=== PATIENT | male | born 1980 | race Caucasian/White ===

== ENCOUNTER 2017-05-29 18:57 | Emergency (ER) | payer SELFPAY ==
[~2017-05-29] VITALS: Ht 167.6 cm; Wt 80.0 kg
[2017-05-29 18:59] VITALS: BP 177/91; PULSE 110; RESP 15; TEMP 98.1; O2SAT 99
[2017-05-29] MEDS ORDERED: PRED20 PO (20:03)
[2017-05-29] MEDS ORDERED: VIST50CA PO (20:03)
[2017-05-29] MEDS ORDERED: TRIA0.022 TOPICAL (20:03)
--- NOTE | 2017-05-29 20:03 | PD ---
HPI Chief Complaint: Skin Problem Time Seen by Provider: 19:25 Travel History International Travel<30 days: No Contact w/Intl Traveler<30days: No Traveled to known affect area: No History of Present Illness HPI 36-year-old male presents to the emergency department for evaluation of a pruritic, dry flaky rash on his bilateral upper extremities. Noticed it starting about a month ago. It has progressively gotten worse. Denies any new exposures. No fever or chills. No recent illnesses. No known new medications. 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 He has no other symptoms to report. [facility] Past Medical History Medical History: Denies Significant Hx Social History Alcohol Use: No Tobacco Use: No Substance Use: No Allergies-Medications Reported Meds & Prescriptions Reported Meds & Active Scripts Active Vistaril (Hydroxyzine Pamoate) 50 Mg Cap 50 Mg PO QID PRN Prednisone 20 Mg Tab 20 Mg PO BID 5 Days Triamcinolone Topical 0.025 % Oint 1 Applic TOPICAL BID Review of Systems Except as stated in HPI: all other systems reviewed are Neg Physical Exam Narrative GENERAL: Well-nourished, well-developed nail patient in no acute distress SKIN: Focused skin assessment warm/dry. Plaque like scaly lesions that are moderately erythematous on the forearm. There also micropapules that are erythematous and blanchable moving up the bilateral extremities. No vesicle or pustule formation. These micropapules her also on the patient's back. HEAD: Normocephalic. EYES: No scleral icterus. No injection or drainage. NECK: Supple, trachea midline. No JVD or lymphadenopathy. CARDIOVASCULAR: Regular rate and rhythm without murmurs, gallops, or rubs. RESPIRATORY: Breath sounds equal bilaterally. No accessory muscle use. GASTROINTESTINAL: Abdomen soft, non-tender, nondistended. MUSCULOSKELETAL: No cyanosis, or edema. BACK: Nontender without obvious deformity. No CVA tenderness. Data Data Last Documented VS Vital Signs Date Time Temp Pulse Resp B/P (MAP) Pulse Ox O2 Delivery O2 Flow Rate FiO2 05/29/17 18:59 98.1 110 15 177/91 (119) 99 MDM Medical Decision Making Medical Screen Exam Complete: Yes Emergency Medical Condition: Yes Medical Record Reviewed: Yes Differential Diagnosis Eczema versus psoriasis versus contact dermatitis versus parasitic infection Narrative Course 36-year-old male presents to emergency department for evaluation of a dry flaky rash. Physical findings are consistent with an eczema versus psoriasis. Patient be treated with topical steroid. He is encouraged to seek dermatology evaluation. He agrees to return immediately with any acute worsening symptoms. Diagnosis Primary Impression: Eczema of upper extremity Referrals: Retirement Benefits Specialist Primary Care Physician Patient Instructions: Eczema (GEN), General Instructions Additional Instructions: Avoid scratching the lesions Follow-up with dermatology Return immediately with any acute worsening of symptoms Med/Other Pt SpecificInfo: Prescription(s) given Scripts Hydroxyzine Pamoate (Vistaril) 50 Mg Cap 50 MG PO QID Y for ITCHING, #20 CAP 0 Refills Prov: Nely Landis 05/29/17 Prednisone (Prednisone) 20 Mg Tab 20 MG PO BID for 5 Days, #10 TAB 0 Refills Prov: Nely Landis 05/29/17 Triamcinolone Topical (Triamcinolone Topical) 0.025 % Oint 1 APPLIC TOPICAL BID for Inflammation, #1 TUBE 0 Refills Prov: Nely Landis 05/29/17 Disposition: 01 DISCHARGE HOME Condition: Stable Nely Landis May 29, 2017 20:03
== END 2017-05-29 20:07 | disposition home or self-care (01) ==
LOC: NEPK 18:57
DX: L30.9 Dermatitis, unspecified (principal)
CPT/HCPCS: 99284

== ENCOUNTER 2017-08-08 11:05 | Emergency (ER) | payer SELFPAY ==
[~2017-08-08 11:05] MED LIST: PRED20 PO; TRIA0.022 TOPICAL; VIST50CA PO
[2017-08-08 11:06] VITALS: BP_SYST 125; BP_SYST 140; BP_DIAS 77; BP_DIAS 96; PULSE 107; PULSE 76; RESP 14; RESP 16; TEMP 98.4; O2SAT 99
[2017-08-08] MEDS ORDERED: AZIT250T3 PO (13:00)
[2017-08-08] MEDS ORDERED: PRED20 PO (13:00)
[2017-08-08] MEDS ORDERED: VENTAER INH (13:00)
--- NOTE | 2017-08-08 13:06 | PD ---
HPI Chief Complaint: Cold / Flu Symptoms Time Seen by Provider: 12:49 Travel History International Travel<30 days: No Contact w/Intl Traveler<30days: No Traveled to known affect area: No History of Present Illness HPI 36-year-old male presents to the emergency room for evaluation of mildly productive cough, congestion, sore throat, and malaise for the past 3 weeks. States it started off as a head cold with congestion but the cough has persisted. He was coughing up yellow phlegm. Reports intermittent fevers as high as 102 since onset. States fever should break on their own without medication. He has been taking [id number] NyQuil, DayQuil, and Mucinex without significant relief in symptoms. He went to work today and was sent home early because he was ill-appearing. patient smokes cigarettes. Denies history of asthma. [facility] Social History Alcohol Use: No Tobacco Use: No Substance Use: No Allergies-Medications Reported Meds & Prescriptions Reported Meds & Active Scripts Active Vistaril (Hydroxyzine Pamoate) 50 Mg Cap 50 Mg PO QID PRN Prednisone 20 Mg Tab 20 Mg PO BID 5 Days Triamcinolone Topical 0.025 % Oint 1 Applic TOPICAL BID Review of Systems Except as stated in HPI: all other systems reviewed are Neg Physical Exam Narrative GENERAL: Well-nourished, well-developed male in no acute distress. Afebrile. Ambulatory. SKIN: Focused skin assessment warm/dry. HEAD: Normocephalic. EYES: No scleral icterus. No injection or drainage. NECK: Supple, trachea midline. No JVD or lymphadenopathy. ENT: Mucosa pink and moist. No erythema or exudates. No uvular edema. No uvular , palatal, or tonsillar deviation. Airway patent. Nasal turbinates appear normal without nasal blood, purulent drainage or septal hematoma. EARS: Bilateral pinnae and external canals appear within normal limits. Bilateral tympanic membranes without erythema or perforation. Dullness to the right tympanic membrane. CARDIOVASCULAR: Regular rate and rhythm without murmurs, gallops, or rubs. RESPIRATORY: Breath sounds equal bilaterally. No accessory muscle use. No crackles, rales, or rhonchi. Expiratory wheezes bilaterally. Data Data Last Documented VS Vital Signs Date Time Temp Pulse Resp B/P (MAP) Pulse Ox O2 Delivery O2 Flow Rate FiO2 08/08/17 11:06 98.4 107 14 140/96 111 99 [facility] Medical Decision Making Medical Screen Exam Complete: Yes Emergency Medical Condition: Yes Medical Record Reviewed: Yes Differential Diagnosis Flu, pneumonia, bronchitis Narrative Course 36-year-old male presents to the emergency room for evaluation of mildly productive cough, congestion, sore throat, and flulike symptoms for the past 3 weeks but worsened a few days ago. Vital signs stable. Patient resting comfortably. Coughing occasionally. Physical exam reveals expiratory wheezes bilaterally. Likely viral bronchitis but given duration of symptoms and history of multiple, intermittent fevers as high as 102, patient will be treated empirically for community-acquired pneumonia with azithromycin, prednisone, and albuterol inhaler. Told to follow-up with a PCP or return for worsening symptoms. He understands and agrees to plan. Diagnosis Primary Impression: Bronchitis Referrals: Primary Care Physician Departure Forms: Tests/Procedures, Work Release Enter return to work date: Aug 11, 2017 Additional Instructions: Rest and drink plenty of fluids. Take azithromycin as directed, until gone. Prednisone as directed, until gone. Inhaler as directed, as needed for wheezing and shortness of breath. Follow up with a primary care physician. Return to emergency room for worsening symptoms, as discussed. Med/Other Pt SpecificInfo: Prescription(s) given Scripts Prednisone (Prednisone) 20 Mg Tab 40 MG PO DAILY, #10 TAB 0 Refills Take 40 mg (2 tablets) daily for 5 days Prov: Kacie Calderon MD 08/08/17 Albuterol 18 GM Inh (Ventolin Hfa 18 GM Inh) 90 Mcg/Act Aer 2 PUFF INH Q6H Y for SHORTNESS OF BREATH, #1 INHALER 0 Refills Prov: Kacie Calderon MD 08/08/17 Azithromycin (Azithromycin) 250 Mg Tab 250 MG PO DIRECTED for Infection, #6 TAB 0 Refills Take 2 tabs (500 mg) on day 1 then 1 tab daily x 4 days. Prov: Kacie Calderon MD 08/08/17 Disposition: 01 DISCHARGE HOME Condition: Stable Violet Stallings Aug 08, 2017 13:06
== END 2017-08-08 14:02 | disposition home or self-care (01) ==
LOC: NEPK 11:05
DX: J40 Bronchitis, not specified as acute or chronic (principal); F17.210 Nicotine dependence, cigarettes, uncomplicated
CPT/HCPCS: 99284

== ENCOUNTER 2017-09-18 19:31 | Emergency (ER) | payer SELFPAY ==
[~2017-09-18 19:31] MED LIST changes: +AZIT250T3 PO; -TRIA0.022 TOPICAL; +VENTAER INH
[2017-09-18 19:33] VITALS: BP 136/94; PULSE 114; RESP 16; TEMP 98.6; O2SAT 98
--- NOTE | 2017-09-18 21:17 | RADRPT ---
EXAM DATE/TIME: 09/18/2017 21:00 [facility] COMPARISON: No previous studies available for comparison. INDICATIONS : Chest pain and cough. MEDICAL HISTORY : None. SURGICAL HISTORY : None. ENCOUNTER: Initial ACUITY: 1 month PAIN SCORE: 10 LOCATION: Bilateral chest FINDINGS: A single view of the chest demonstrates the lungs to be symmetrically aerated without evidence of mas s, infiltrate or effusion. The cardiomediastinal contours are unremarkable. Osseous structures are intact. CONCLUSION: Normal examination. Espinoza Smith Jr., MD on September 18, 2017 at 21:14 Board Certified Radiologist. This report was verified electronically.
[2017-09-18 21:26] LABS: AUTOMATED NEUTROPHIL # 6.5 TH/MM3 (1.8-7.7); BASOPHIL # 0.1 TH/MM3 (0-0.2); BASOPHIL % 0.8 % (0.0-2.0); EOSINOPHIL # 0.2 TH/MM3 (0-0.4); EOSINOPHIL % 1.5 % (0.0-4.0); HEMATOCRIT 47.3 % (39.0-51.0); HEMOGLOBIN 16.3 GM/DL (13.0-17.0); LYMPH % 38.9 % (9.0-44.0); LYMPHOCYTE # 4.8 TH/MM3 (1.0-4.8); MEAN CELL VOLUME 86.9 FL (80.0-100.0); MEAN CORPUSCULAR HGB CONC 34.5 % (32.0-36.0); MEAN PLATELET VOLUME 8.5 FL (7.0-11.0); MONO % 6.3 % (0.0-8.0); MONOCYTE # 0.8 TH/MM3 (0-0.9); NEUT % 52.5 % (16.0-70.0); PLATELET COUNT 239 TH/MM3 (150-450); RED BLOOD COUNT 5.45 MIL/MM3 (4.50-5.90); RED CELL DISTRIBUTION WIDTH 13.3 % (11.6-17.2); WHITE BLOOD COUNT 12.3 TH/MM3 (4.0-11.0)
[2017-09-18 21:30] LABS: BILIRUBIN, URINE NEG (NEG); BLOOD, URINE NEG (NEG); GLUCOSE,URINE 1000 mg/dL (NEG); KETONE, URINE TRACE mg/dL (NEG); NITRITE,URINE NEG (NEG); PH, URINE 6.5 (5.0-8.5); SQUAMOUS EPITHELIAL CELL URINE <1 /hpf (0-5); URINE COLOR LIGHT-YELLOW (YELLW/STRAW); URINE LEUKOCYTE ESTERASE NEG (NEG)
[2017-09-18 21:47] LABS: ALT (GPT) 46 U/L (12-78)
[2017-09-18 21:50] LABS: ALKALINE PHOSPHATASE 98 U/L (45-117); TOTAL BILIRUBIN ADULT 0.3 MG/DL (0.2-1.0); TOTAL PROTEIN 7.2 GM/DL (6.4-8.2)
[2017-09-18 21:55] LABS: ALBUMIN 3.7 GM/DL (3.4-5.0); AST (GOT) 19 U/L (15-37); BLOOD UREA NITROGEN 15 MG/DL (7-18); CALCIUM 9.2 MG/DL (8.5-10.1); CHLORIDE 101 MEQ/L (98-107); CREATININE 1.23 MG/DL (0.60-1.30); GLOMERULAR FILTRATION RATE 67 ML/MIN (>89); GLUCOSE,RANDOM 372 MG/DL (74-106); SODIUM (NA) 136 MEQ/L (136-145)
--- NOTE | 2017-09-18 22:09 | RADRPT ---
EXAM DATE/TIME: 09/18/2017 21:47 [facility] COMPARISON: No previous studies available for comparison. INDICATIONS : Left flank pain. ORAL CONTRAST: No oral contrast ingested. RADIATION DOSE: 19.20 CTDIvol (mGy) MEDICAL HISTORY : Renal calculi. SURGICAL HISTORY : None. ENCOUNTER: Initial ACUITY: 2 days PAIN SCALE: 8/10 LOCATION: Left flank TECHNIQUE: Volumetric scanning of the abdomen and pelvis was performed. Using automated exposure control and ad justment of the mA and/or kV according to patient size, radiation dose was kept as low as reasonably achievable to obtain optimal diagnostic quality images. DICOM format image data is available electro nically for review and comparison. FINDINGS: LOWER LUNGS: The visualized lower lungs are clear. LIVER: Homogeneously low density without lesion. There is no dilation of the biliary tree. No calcified ga llstones. SPLEEN: Normal size without lesion. PANCREAS: Within normal limits. KIDNEYS: Normal in size and shape. There is no mass or hydronephrosis. Bilateral nonobstructing renal calculi . The largest measures 10 mm on the left. ADRENAL GLANDS: Within normal limits. VASCULAR: There is no aortic aneurysm. BOWEL/MESENTERY: The stomach, small bowel, and colon demonstrate no acute abnormality. There is no free intraperitone al air or fluid. ABDOMINAL WALL: Within normal limits. RETROPERITONEUM: There is no lymphadenopathy. BLADDER: No wall thickening or mass. REPRODUCTIVE: Within normal limits. INGUINAL: There is no lymphadenopathy or hernia. MUSCULOSKELETAL: Within normal limits for patient age. CONCLUSION: 1. Bilateral nonobstructing renal calculi. The largest is on the left measuring 1 cm. 2. Hepatic steatosis. Espinoza Smith Jr., MD on September 18, 2017 at 22:03 Board Certified Radiologist. This report was verified electronically.
[2017-09-18] MEDS ORDERED: methylPREDNISolone SOD SUCC 125 MG/2 ML VIAL IV PUSH ONE (22:15)
[2017-09-18] MEDS: RESP: ALBUTEROL 2.5 MG/IPRATROPIUM 0.5 MG NEB (SCH) INH (22:18)
[2017-09-18] MEDS ORDERED: VENTAER INH (22:34)
[2017-09-18] MEDS ORDERED: CIPR-9 PO ×2 (22:34→22:40)
[2017-09-18] MEDS ORDERED: METF500T PO (22:34)
--- NOTE | 2017-09-18 22:34 | PD ---
HPI Chief Complaint: Medical Clearance Time Seen by Provider: 22:00 Travel History International Travel<30 days: No Contact w/Intl Traveler<30days: No Traveled to known affect area: No History of Present Illness HPI 36 years old male complains of coughing congestion wheezing, left flank pain. Patient states that she started having persistent coughing congestion wheezing for the past month. Patient with seen in emergency room in the past with given prescription for Z-Lukasz an inhaler. Patient states that he could not afford the inhaler. Patient took the Z-Lukasz as directed. Patient needs a smoker. Patient denies any history of asthma or COPD. Patient states her cough. Persistent occasionally productive. Patient denies any chest pain or shortness of breath. Patient started having left flank pain for the past 8 days. Patient states the pain as dull aching pain persistent pain localized to left flank area. Patient denies any pain radiation. Patient states that he has some mild pain to left groin area recently. Patient denies any dysuria or frequency. Patient states that the urine has dark color patient recently. Patient denies any fever chills. Patient has history of prediabetic in the past. PFSH Past Medical History Kidney Stones: Yes Immunizations Current: Yes Past Surgical History Surgical History: No Previous Surgery Social History Alcohol Use: No Tobacco Use: Yes (1PPD) Substance Use: No Allergies-Medications (Allergen,Severity, Reaction): Coded Allergies: No Known Allergies (Verified Allergy, Unknown, 08/08/17) Reported Meds & Prescriptions Reported Meds & Active Scripts Active Cipro (Ciprofloxacin HCl) 500 Mg Tab 500 Mg PO BID Metformin (Metformin HCl) 500 Mg Tab 500 Mg PO BIDPC Ventolin Hfa 18 GM Inh (Albuterol Sulfate) 90 Mcg/Act Aer 2 Puff INH Q4-6H PRN Review of Systems General / Constitutional: No: Fever Eyes: No: Visual changes HENT: No: Headaches Cardiovascular: No: Chest Pain or Discomfort Respiratory: Positive: Cough, Wheezing, No: Shortness of Breath Gastrointestinal: No: Abdominal Pain Genitourinary: No: Dysuria Musculoskeletal: No: Pain Skin: No Rash Neurologic: No: Weakness Psychiatric: No: Depression Endocrine: No: Polydipsia Hematologic/Lymphatic: No: Easy Bruising Physical Exam Narrative GENERAL: Well-nourished, well-developed patient. SKIN: Focused skin assessment warm/dry. HEAD: Normocephalic. EYES: No scleral icterus. No injection or drainage. NECK: Supple, trachea midline. No JVD or lymphadenopathy. TM: Clear. Throat: Nonerythematous. CARDIOVASCULAR: Regular rate and rhythm without murmurs, gallops, or rubs. RESPIRATORY: Breath sounds equal bilaterally. No accessory muscle use. Patient has mild to moderate expiratory wheezes bilaterally. Few rhonchi at the bases. GASTROINTESTINAL: Abdomen soft, non-tender, nondistended. MUSCULOSKELETAL: No cyanosis, or edema. BACK: mild tenderness on palpation left mid lumbar area, without obvious deformity. No CVA tenderness. Neurologic exam normal. Data Data Last Documented VS Vital Signs Date Time Temp Pulse Resp B/P (MAP) Pulse Ox O2 Delivery O2 Flow Rate FiO2 09/18/17 19:33 98.6 114 16 136/94 (108) 98 Orders Orders Urinalysis - C+S If Indicated (09/18/17 20:44) Complete Blood Count With Diff (09/18/17 20:44) Comprehensive Metabolic Panel (09/18/17 20:44) Iv Access Insert/Monitor (09/18/17 20:44) Chest, Single Ap (09/18/17 20:44) Ct Abd/Pel W/O Iv Contrast (09/18/17 21:21) Methylprednisolone So Succ Inj (Solumedr (09/18/17 22:15) Albuterol-Ipratropium Neb (Duoneb Neb) (09/18/17 22:15) Insulin Human Regular Inj (Novolin R Inj (09/18/17 22:45) Ed Discharge Order (09/18/17 22:36) Labs Laboratory Tests Test 09/18/17 20:54 White Blood Count 12.3 TH/MM3 Red Blood Count 5.45 MIL/MM3 Hemoglobin 16.3 GM/DL Hematocrit 47.3 % Mean Corpuscular Volume 86.9 FL Mean Corpuscular Hemoglobin 30.0 PG Mean Corpuscular Hemoglobin Concent 34.5 % Red Cell Distribution Width 13.3 % Platelet Count 239 TH/MM3 Mean Platelet Volume 8.5 FL Neutrophils (%) (Auto) 52.5 % Lymphocytes (%) (Auto) 38.9 % Monocytes (%) (Auto) 6.3 % Eosinophils (%) (Auto) 1.5 % Basophils (%) (Auto) 0.8 % Neutrophils # (Auto) 6.5 TH/MM3 Lymphocytes # (Auto) 4.8 TH/MM3 Monocytes # (Auto) 0.8 TH/MM3 Eosinophils # (Auto) 0.2 TH/MM3 Basophils # (Auto) 0.1 TH/MM3 CBC Comment DIFF FINAL Differential Comment Urine Color LIGHT-YELLOW Urine Turbidity CLEAR Urine pH 6.5 Urine Specific [place] 1.022 Urine Protein TRACE mg/dL Urine Glucose (UA) 1000 mg/dL Urine Ketones TRACE mg/dL Urine Occult Blood NEG Urine Nitrite NEG Urine Bilirubin NEG Urine Urobilinogen LESS THAN 2.0 MG/DL Urine Leukocyte Esterase NEG Urine RBC 1 /hpf Urine WBC LESS THAN 1 /hpf Urine Squamous Epithelial Cells <1 /hpf Microscopic Urinalysis Comment CULT NOT INDICATED Blood Urea Nitrogen 15 MG/DL Creatinine 1.23 MG/DL Random Glucose 372 MG/DL Total Protein 7.2 GM/DL Albumin 3.7 GM/DL Calcium Level 9.2 MG/DL Alkaline Phosphatase 98 U/L Aspartate Amino Transf (AST/SGOT) 19 U/L Alanine Aminotransferase (ALT/SGPT) 46 U/L Total Bilirubin 0.3 MG/DL Sodium Level 136 MEQ/L Potassium Level 4.2 MEQ/L Chloride Level 101 MEQ/L Carbon Dioxide Level 25.0 MEQ/L Anion Gap 10 MEQ/L Estimat Glomerular Filtration Rate 67 ML/MIN [facility] Medical Decision Making Medical Screen Exam Complete: Yes Emergency Medical Condition: Yes Interpretation(s) Last Impressions Chest X-Ray 09/18/[id number] Signed Impressions: Service Date/Time: Monday, September 18, 2017 21:00 - CONCLUSION: Normal examination. Espinoza Smith Jr., MD 22:[address] scan abdomen pelvis showed nonobstructing stone. No acute process. CBC WBC 12.3. Normal differential. CMP within normal limits. Glucose 372. UA positive for glucose trace ketones. Differential Diagnosis Differential diagnosis including reactive airway disease, bronchitis, pneumonia , musculoskeletal, nephrolithiasis, pyelonephritis, colitis, UTI. Narrative Course 36 years old male with coughing congestion wheezing, left flank pain. Albuterol with Atrovent unit dose treatment 2. Solu-Medrol 125 mg IV. Diagnosis Primary Impression: Diabetes Qualified Codes: E11.9 - Type 2 diabetes mellitus without complications; Z79.4 - termite exterminator (current) use of insulin Additional Impressions: Reactive airway disease Qualified Codes: J45.20 - Mild intermittent asthma, uncomplicated Nephrolithiasis Patient Instructions: General Instructions Additional Instructions: Take medication as directed. Use inhaler as directed. Follow-up with personal physician. Accu-Chek blood sugar daily. Advised diabetic and diet diabetic teaching. Med/Other Pt SpecificInfo: Prescription(s) given Scripts [place] Contour Blood Gluco W/Device (Victoria Contour Blood Gluco W/Device) 1 Kit Kit KIT .ROUTE DIRECTED for Blood Sugar Management, #1 0 Refills Check blood sugar fasting an after meal Prov: Barry Rachel MD 09/18/17 Blood Glucose Test Strips (Blood Glucose Test Strips) Strips Strip EA .ROUTE DIRECTED for Blood Sugar Management, #1 10 Refills Blood sugar checked fasting an after meal Prov: Barry Rachel MD 09/18/17 Ciprofloxacin (Cipro) 500 Mg Tab 500 MG PO BID for Infection, #14 TAB 0 Refills Prov: Barry Rachel MD 09/18/17 Metformin (Metformin) 500 Mg Tab 500 MG PO BIDPC for Blood Sugar Management, #60 TAB 0 Refills Prov: Barry Rachel MD 09/18/17 Albuterol 18 GM Inh (Ventolin Hfa 18 GM Inh) 90 Mcg/Act Aer 2 PUFF INH Q4-6H Y for SHORTNESS OF BREATH, #1 INHALER 0 Refills Prov: Barry Rachel MD 09/18/17 Disposition: 01 DISCHARGE HOME Condition: Stable Barry Rachel MD Sep 18, 2017 22:34
[2017-09-18] MEDS ORDERED: INSULIN HUMAN REGULAR 1,000 UNITS/10 ML VIAL IV PUSH ONE (22:45)
[2017-09-18] MEDS ORDERED: BLOOD GLUCOSE T1 TES (22:59)
[2017-09-18] MEDS ORDERED: BAYEKIT (23:02)
== END 2017-09-18 23:12 | disposition home or self-care (01) ==
LOC: NEPD 19:31
DX: E11.9 Type 2 diabetes mellitus without complications (principal); J45.20 Mild intermittent asthma, uncomplicated; N20.0 Calculus of kidney; F17.200 Nicotine dependence, unspecified, uncomplicated; Z79.4 Long term (current) use of insulin
CPT/HCPCS: 71045; 74176; 80053; 81001; 85025; 94640; 94664; 96374; 99285; J1815